=== PATIENT | male | born 1980 | race Caucasian/White ===

== ENCOUNTER 2019-09-23 15:27 | Inpatient (IN) | payer OTHER ==
[~2019-09-23] VITALS: Ht 182.8 cm; Wt 110.8 kg
--- NOTE | ~2019-09-23 | EKG ---
[place], [place] ELECTROCARDIOGRAM REPORT NAME: NIKOLE MENJIVAR UNIT #: [id number] ROOM: 421 DOCTOR: SP DRAFT REPORT BIRTHDATE: [birth year] [facility] Test Date: 2019-09-23 Test Time: 17:24:22 Pat Name: NIKOLE MENJIVAR Department: Room: 421 1 Gender: M Business Office Specialist: TL : 1980 Requested By: YENIFER STANLEY Order Number: [id number] Reading MD: Derrek Luna MD Measurements Intervals Howard Rate: 69 P: 5 TN: 154 QRS: 55 QRSD: 101 T: 15 QT: 381 QTc: 408 Interpretive Statements Sinus rhythm Baseline wander in lead(s) V4,V5 Electronically Signed On 09-24-2019 8:13:15 PDT by Derrek Luna MD CM:EKGRPT:ELECTROCARDIOGRAM REPORT [id number] YENIFER STANLEY EPIPHANY DRAFT REPORT YENIFER STANLEY
[2019-09-23] MEDS ORDERED: WELLBUTRIN XL150 MG PO (16:45)
[2019-09-23] MEDS ORDERED: NEURONTIN800 MG PO (16:46)
[2019-09-23] MEDS ORDERED: ADDERALL 20 MG20 MG PO (16:46)
[2019-09-23] MEDS ORDERED: XANAX XR1 MG PO (16:48)
[2019-09-23] MEDS ORDERED: 'CLONIDINE0.1 MG PO (16:48)
[2019-09-23 17:02] LABS: BASO # 0.1 10*3/uL (0.0-0.1); BASO % 0.7 % (0.0-1.0); EOS # 0.2 10*3/uL (0.0-0.4); HEMATOCRIT 41.5 % (42.0-52.0); HEMOGLOBIN 14.1 g/dl (14.0-18.0); LYMPH # 2.2 10*3/uL (1.3-4.4); LYMPH % 29.4 % (27.0-41.0); MEAN CELL VOLUME 86.6 fl (80.0-94.0); MEAN CORPUSCULAR HGB 29.4 pg (27.0-31.0); MEAN PLATELET VOLUME 10.1 fl (9.6-12.3); MONO # 0.5 10*3/uL (0.1-1.0); MONO % 7.2 % (3.0-9.0); NEUT # 4.4 10*3/uL (2.3-7.9); NEUT % 60.3 % (47.0-73.0); PLATELET COUNT AUTOMATED 295 10*3/uL (130-400); RED BLOOD COUNT 4.79 10*6/uL (4.50-5.90); RED CELL DISTRI WIDTH 13.3 % (0-14.5); WHITE BLOOD COUNT 7.3 10*3/uL (4.8-10.8)
[2019-09-23 17:16] LABS: INTERNATIONAL NORM RATIO 0.9 (2.0-3.5)
[2019-09-23 17:23] LABS: ALBUMIN 3.5 gm/dl (3.1-4.5); ALKALINE PHOSPHATASE 86 U/L (45-117); BUN 11 mg/dl (7-24); CHLORIDE 106 mmol/L (98-107); CREATININE 0.78 mg/dL (0.70-1.30); POTASSIUM 3.9 mmol/L (3.5-5.1); SGOT/AST 15 IU/L (3-35); SGPT/ALT 34 U/L (12-78); SODIUM 139 mmol/L (136-145); TOTAL PROTEIN 7.5 gm/dL (6.4-8.2)
[2019-09-23 17:29] LABS: ETHYL ALCOHOL < 3.0 mg/dl (<3)
[2019-09-23 18:11] LABS: BILIRUBIN NEGATIVE (NEGATIVE); BLOOD NEGATIVE (NEGATIVE); CLARITY SL CLOUDY (CLEAR); COLOR YELLOW (YELLOW); GLUCOSE NEGATIVE (NEGATIVE); KETONE NEGATIVE (NEGATIVE); LEUKO ESTERASE NEGATIVE (NEGATIVE); NITRITE NEGATIVE (NEGATIVE); SPECIFIC GRAVITY >= 1.030 (1.005-1.030); UROBILINOGEN 0.2 E.U./dl (0.2-1.0)
[2019-09-23 18:33] LABS: MUCOUS 2+
[2019-09-23 18:36] LABS: URINE AMPHETAMINES > 1000 (1000ng/ml); URINE BARBITURATES < 200 (200ng/ml); URINE BENZODIAZEPINES < 200 (200ng/ml); URINE CANNABINOIDS (THC) < 50 (50ng/ml); URINE COCAINE > 300 (300ng/ml); URINE METHADONE < 300 (300ng/ml); URINE OPIATES > 300 (300ng/ml)
[2019-09-23 18:43] LABS: URINE PHENCYCLIDINE < 25 (25ng/ml)
[2019-09-23 20:00] VITALS: BP 153/78
[2019-09-24] VITALS: BP 123/76
[2019-09-24 04:00] VITALS: BP 120/72
[2019-09-24 08:00] VITALS: BP 124/74
[2019-09-24 16:00] VITALS: BP 143/87
[2019-09-24 20:00] VITALS: BP 140/82
[2019-09-25] VITALS: BP 139/87
[2019-09-25 08:00] VITALS: BP 133/79
[2019-09-25 16:00] VITALS: BP 140/86
[2019-09-25 20:00] VITALS: BP 132/78
[2019-09-26] VITALS: BP 126/79
[2019-09-26 08:00] VITALS: BP 145/87
[2019-09-26] MEDS ORDERED: METHOCARBAMOL750 M1 PO (09:48)
[2019-09-26] MEDS ORDERED: NATURE'S BLEND F1 MG PO (09:48)
[2019-09-26] MEDS ORDERED: ROPINIROLE HYD0.5 MG PO (09:48)
[2019-09-26] MEDS ORDERED: VITAMIN B-1100 M1 PO (09:48)
[2019-09-26] MEDS ORDERED: THERA TABLET400 MCG PO (09:48)
== END 2019-09-26 10:02 | disposition home or self-care (01) | DRG 773 ==
LOC: 4E 15:27
PROVIDERS: ADMIT Family Medicine
DX: F11.23 Opioid dependence with withdrawal (principal); F14.10 Cocaine abuse, uncomplicated; F15.10 Other stimulant abuse, uncomplicated; F41.9 Anxiety disorder, unspecified; F32.9 Major depressive disorder, single episode, unspecified; F17.210 Nicotine dependence, cigarettes, uncomplicated; Z71.6 Tobacco abuse counseling; Z88.0 Allergy status to penicillin; Z82.49 Family history of ischemic heart disease and other diseases of the circulatory system

== ENCOUNTER 2021-01-01 13:49 | Inpatient (IN) | payer OTHER ==
[~2021-01-01] VITALS: Ht 182.8 cm; Wt 113.4 kg
[~2021-01-01 13:49] MED LIST: 'CLONIDINE0.1 MG PO; ADDERALL 20 MG20 MG PO; METHOCARBAMOL750 M1 PO; NATURE'S BLEND F1 MG PO; NEURONTIN800 MG PO; ROPINIROLE HYD0.5 MG PO; THERA TABLET400 MCG PO; VITAMIN B-1100 M1 PO; WELLBUTRIN XL150 MG PO; XANAX XR1 MG PO
[2021-01-01 13:52] VITALS: BP 123/94
[2021-01-01 15:51] LABS: HEMATOCRIT 42.9 % (42.0-52.0); MEAN CORPUSCULAR HGB 30.3 pg (27.0-31.0); MEAN PLATELET VOLUME 10.8 fl (9.6-12.3); PLATELET COUNT AUTOMATED 276 10*3/uL (130-400); RED BLOOD COUNT 4.82 10*6/uL (4.50-5.90); RED CELL DISTRI WIDTH 12.5 % (0-14.5); WHITE BLOOD COUNT 9.6 10*3/uL (4.8-10.8)
[2021-01-01 15:59] LABS: BILIRUBIN Negative (Negative); BLOOD Negative (Negative); CLARITY Clear (Clear); COLOR Yellow (Yellow); GLUCOSE Negative (Negative); KETONE Negative (Negative); LEUKO ESTERASE Negative (Negative); NITRITE Negative (Negative); PH 6.5 (4.5-8.0); SPECIFIC GRAVITY >= 1.030 (1.001-1.030); UROBILINOGEN 0.2 E.U./dl (0.0-1.0)
[2021-01-01 16:00] VITALS: BP 130/70
[2021-01-01 16:09] LABS: ALBUMIN 3.6 gm/dl (3.1-4.5); ALKALINE PHOSPHATASE 74 U/L (45-117); BUN 20 mg/dl (7-24); CHLORIDE 110 mmol/L (98-107); CREATININE 1.03 mg/dL (0.70-1.30); POTASSIUM 4.2 mmol/L (3.5-5.1); SGOT/AST 41 IU/L (3-35); SGPT/ALT 103 U/L (12-78); SODIUM 138 mmol/L (136-145); TOTAL PROTEIN 7.2 gm/dL (6.4-8.2)
[2021-01-01 16:35] LABS: PLATELET SUFFICIENCY NORMAL (NORMAL); TOTAL CELLS COUNTED 100 #CELLS
[2021-01-01 16:38] LABS: BACTERIA TRACE; RBC 0-2 rbc/hpf (0-2)
[2021-01-01 16:51] LABS: URINE AMPHETAMINES > 1000 (1000ng/ml); URINE BARBITURATES < 200 (200ng/ml); URINE BENZODIAZEPINES < 200 (200ng/ml); URINE CANNABINOIDS (THC) < 50 (50ng/ml); URINE COCAINE > 300 (300ng/ml); URINE METHADONE < 300 (300ng/ml); URINE OPIATES < 300 (300ng/ml)
[2021-01-01 16:55] LABS: URINE PHENCYCLIDINE < 25 (25ng/ml)
[2021-01-01 17:30] VITALS: BP 173/102
[2021-01-01] MEDS ORDERED: ALPRAZOLAM2 MG PO (18:52)
[2021-01-01] MEDS ORDERED: VALACYCLOVIR500 M1 PO (18:52)
[2021-01-02] VITALS: BP 132/92
[2021-01-02 07:06] LABS: ALBUMIN 3.5 gm/dl (3.1-4.5); ALKALINE PHOSPHATASE 71 U/L (45-117); BUN 17 mg/dl (7-24); CHLORIDE 107 mmol/L (98-107); CREATININE 0.87 mg/dL (0.70-1.30); POTASSIUM 3.9 mmol/L (3.5-5.1); SGOT/AST 43 IU/L (3-35); SGPT/ALT 106 U/L (12-78); SODIUM 139 mmol/L (136-145); TOTAL PROTEIN 7.1 gm/dL (6.4-8.2)
[2021-01-02 07:19] LABS: ACT PARTIAL THROMBO TIME 26.2 SECONDS (20.0-32.1); INTERNATIONAL NORM RATIO 0.9 (2.0-3.5)
[2021-01-02 08:00] VITALS: BP 119/69
[2021-01-02 16:00] VITALS: BP 140/92
[2021-01-02 20:07] VITALS: BP 144/89
[2021-01-03] VITALS: BP 147/85
[2021-01-03 08:00] VITALS: BP 130/84
[2021-01-03 12:00] VITALS: BP 137/83
[2021-01-03 16:00] VITALS: BP 128/67
[2021-01-03 20:00] VITALS: BP 129/73
[2021-01-04] VITALS: BP 150/95
[2021-01-04 07:24] LABS: BASO % 0.4 % (0.0-1.0); EOS # 0.3 10*3/uL (0.0-0.4); EOS % 4.3 % (1.0-4.0); HEMATOCRIT 43.5 % (42.0-52.0); LYMPH % 28.2 % (27.0-41.0); MEAN CELL VOLUME 88.6 fl (80.0-94.0); MEAN CORPUSCULAR HGB 29.9 pg (27.0-31.0); MEAN CORPUSCULAR HGB CONC 33.8 g/dl (33.0-37.0); MEAN PLATELET VOLUME 10.4 fl (9.6-12.3); MONO # 0.5 10*3/uL (0.1-1.0); MONO % 6.7 % (3.0-9.0); NEUT # 4.3 10*3/uL (2.3-7.9); PLATELET COUNT AUTOMATED 248 10*3/uL (130-400); RED BLOOD COUNT 4.91 10*6/uL (4.50-5.90); WHITE BLOOD COUNT 7.2 10*3/uL (4.8-10.8)
[2021-01-04 07:56] LABS: CREATININE 0.87 mg/dL (0.70-1.30)
[2021-01-04 08:00] VITALS: BP 134/88
== END 2021-01-04 14:45 | disposition home or self-care (01) | DRG 773 ==
LOC: ED 13:49 → 5E 15:22 → EDHOLD 15:22 → 5E 16:17
PROVIDERS: Emergency Medicine; Hospitalist; Internal Medicine; ADMIT Internal Medicine; ATTEND Internal Medicine
DX: F11.23 Opioid dependence with withdrawal (principal); R73.9 Hyperglycemia, unspecified; E83.41 Hypermagnesemia; F14.10 Cocaine abuse, uncomplicated; F32.9 Major depressive disorder, single episode, unspecified; E87.8 Other disorders of electrolyte and fluid balance, not elsewhere classified; F17.210 Nicotine dependence, cigarettes, uncomplicated; F41.9 Anxiety disorder, unspecified; R74.01 Elevation of levels of liver transaminase levels; Z88.0 Allergy status to penicillin; Z82.49 Family history of ischemic heart disease and other diseases of the circulatory system; Z83.49 Family history of other endocrine, nutritional and metabolic diseases; Z71.6 Tobacco abuse counseling; Z79.899 Other long term (current) drug therapy

== ENCOUNTER 2021-07-18 12:21 | Inpatient (IN) | payer OTHER ==
[~2021-07-18] VITALS: Ht 182.8 cm; Wt 132.7 kg
[~2021-07-18 12:21] MED LIST changes: +ALPRAZOLAM2 MG PO; +VALACYCLOVIR500 M1 PO
[2021-07-18 12:26] VITALS: BP 140/90
[2021-07-18 13:31] LABS: BASO # 0.1 10*3/uL (0.0-0.1); BASO % 0.6 % (0.0-1.0); EOS # 0.3 10*3/uL (0.0-0.4); EOS % 3.4 % (1.0-4.0); HEMATOCRIT 42.5 % (42.0-52.0); LYMPH # 1.4 10*3/uL (1.3-4.4); LYMPH % 17.5 % (27.0-41.0); MEAN CELL VOLUME 90.2 fl (80.0-94.0); MEAN CORPUSCULAR HGB 29.1 pg (27.0-31.0); MEAN CORPUSCULAR HGB CONC 32.2 g/dl (33.0-37.0); MEAN PLATELET VOLUME 10.7 fl (9.6-12.3); MONO # 0.5 10*3/uL (0.1-1.0); MONO % 6.4 % (3.0-9.0); NEUT # 5.5 10*3/uL (2.3-7.9); NEUT % 71.6 % (47.0-73.0); PLATELET COUNT AUTOMATED 223 10*3/uL (130-400); RED BLOOD COUNT 4.71 10*6/uL (4.50-5.90); RED CELL DISTRI WIDTH 12.9 % (0-14.5); WHITE BLOOD COUNT 7.7 10*3/uL (4.8-10.8)
[2021-07-18 13:51] LABS: ALBUMIN 3.5 gm/dl (3.1-4.5); ALKALINE PHOSPHATASE 86 U/L (45-117); BUN 14 mg/dl (7-24); CHLORIDE 109 mmol/L (98-107); LIPASE 143 U/L (73-393); SGPT/ALT 100 U/L (12-78); SODIUM 138 mmol/L (136-145); TOTAL PROTEIN 7.1 gm/dL (6.4-8.2)
[2021-07-18 13:52] LABS: ETHYL ALCOHOL < 3.0 mg/dl (<3); TROPONIN I < 0.015 ng/ml (<0.045)
[2021-07-18 13:56] LABS: SGOT/AST 45 IU/L (3-35)
[2021-07-18 15:25] VITALS: BP 139/83
[2021-07-18 16:00] VITALS: BP 124/90
[2021-07-18 16:23] LABS: URINE AMPHETAMINES < 1000 (1000ng/ml); URINE BARBITURATES < 200 (200ng/ml); URINE BENZODIAZEPINES < 200 (200ng/ml); URINE CANNABINOIDS (THC) < 50 (50ng/ml); URINE COCAINE > 300 (300ng/ml); URINE METHADONE < 300 (300ng/ml); URINE OPIATES < 300 (300ng/ml)
[2021-07-18 16:26] LABS: URINE PHENCYCLIDINE < 25 (25ng/ml)
[2021-07-18 18:49] VITALS: BP 153/100
[2021-07-18 20:00] VITALS: BP 124/90
[2021-07-19] VITALS: BP 104/77
[2021-07-19 07:00] LABS: CHOLESTEROL 150 mg/dL (<200); LDL CHOLESTEROL 74 mg/dL (9-159); TRIGLYCERIDES 155 mg/dl (<150)
[2021-07-19 08:00] VITALS: BP 139/90
[2021-07-19 12:00] VITALS: BP 136/80
[2021-07-19 16:00] VITALS: BP 136/92
[2021-07-19 20:00] VITALS: BP 127/72
[2021-07-20] VITALS: BP 127/68
[2021-07-20 08:00] VITALS: BP 145/93
[2021-07-20 12:00] VITALS: BP 156/76
[2021-07-20] MEDS ORDERED: NATURE'S BLEND F1 MG PO (14:36)
[2021-07-20] MEDS ORDERED: THERA TABLET400 MCG PO (14:36)
[2021-07-20] MEDS ORDERED: VITAMIN B-1100 M1 PO (14:36)
== END 2021-07-20 16:53 | disposition home or self-care (01) | DRG 773 ==
LOC: ED 12:21 → 4E 13:20 → EDHOLD 13:20 → 4E 17:20
PROVIDERS: Emergency Medicine; Student in an Organized Health Care Education/Training Program; ADMIT Student in an Organized Health Care Education/Training Program; ATTEND Student in an Organized Health Care Education/Training Program
DX: F11.23 Opioid dependence with withdrawal (principal); R74.01 Elevation of levels of liver transaminase levels; F41.9 Anxiety disorder, unspecified; R60.0 Localized edema; R06.00 Dyspnea, unspecified; D64.9 Anemia, unspecified; E87.8 Other disorders of electrolyte and fluid balance, not elsewhere classified; R73.9 Hyperglycemia, unspecified; E83.41 Hypermagnesemia; E66.9 Obesity, unspecified; F13.239 Sedative, hypnotic or anxiolytic dependence with withdrawal, unspecified; F32.9 Major depressive disorder, single episode, unspecified; F17.210 Nicotine dependence, cigarettes, uncomplicated; Z71.6 Tobacco abuse counseling; Z88.0 Allergy status to penicillin; Z82.49 Family history of ischemic heart disease and other diseases of the circulatory system; Z83.49 Family history of other endocrine, nutritional and metabolic diseases; Z68.39 Body mass index [BMI] 39.0-39.9, adult